=== PATIENT | male | born 1950 | race Caucasian/White ===

== ENCOUNTER 2017-04-15 13:41 | Emergency (ER) | payer OTHER ==
[2017-04-15] MEDS ORDERED: SODIUM CHLORIDE FLUSH 0.9% 10 ML SYRINGE IVP ONE (13:54)
[2017-04-15 14:24] LABS: ALBUMIN/GLOBULIN RATIO 1.5 (1.0-2.2); BILIRUBIN,TOTAL 0.7 mg/dL (0.2-1.0); CALCIUM 9.6 mg/dL (8.5-10.3); CREATININE 1.2 mg/dL (0.6-1.2); TOTAL PROTEIN 7.3 g/dL (6.7-8.2)
[2017-04-15 14:27] LABS: BASOPHILS % (AUTO) 0.5 %; EOSINOPHILS % (AUTO) 0.4 %; HCT - HEMATOCRIT 41.7 % (42.0-52.0); HGB - HEMOGLOBIN 14.3 g/dL (14.0-18.0); LYMPHOCYTES # (AUTO) 0.8 10^3/uL (1.5-3.5); MEAN CORPUSCULAR HEMOGLOBIN 30.7 pg (27.0-31.0); MEAN CORPUSCULAR HGB CONC 34.2 g/dL (32.0-36.0); MEAN CORPUSCULAR VOLUME 89.6 fL (80.0-94.0); MEAN PLATELET VOLUME 10.9 fL (7.4-11.4); MONOCYTES # (AUTO) 0.2 10^3/uL (0.0-1.0); MONOCYTES % (AUTO) 2.7 %; NEUTROPHILS # (AUTO) 6.5 10^3/uL (1.5-6.6); NEUTROPHILS % (AUTO) 85.4 %; NUCLEATED RED BLOOD CELLS AUTO 0.1 /100WBC; RED BLOOD COUNT 4.65 10^6/uL (4.70-6.10); RED CELL DISTRIBUTION WIDTH 12.9 % (12.0-15.0); UNCORRECTED WHITE BLOOD COUNT 7.6 x10^3/uL; WHITE BLOOD COUNT 7.6 x10^3/uL (4.8-10.8)
--- NOTE | 2017-04-15 14:29 | ED Physician Documentation ---
PD HPI CHEST PAIN - Stated complaint Stated Complaint: CHEST PAIN - Chief complaint Chief Complaint: Cardiac - History obtained from History obtained from: Patient, Family - History of Present Illness Timing - onset: Enter time (), Today Timing - onset during: Exertion Timing - duration: Hours Timing - details: Abrupt onset, Still present Pain level max: 8 Pain level now: 7 Quality: Pressure, Aching Location: Left chest Radiation: Left upper extremity Improved by: Rest. No: Antacids Worsened by: Exertion Associated symptoms: Shortness of air, Diaphoresis Similar symptoms before: No diagnosis Recently seen: Not recently seen - Additional information Additional information: 66-year-old male ran up his stairs today and back down the stairs and then back up the stairs again and developed his typical chest pain that he gets with exertion over this past year. He usually is able to have this pain resolved with rest. Today this did not resolve and he continues to have pain in his left chest with some radiation down his left arm. The radiation down the left arm is resolved since coming to the emergency department. The patient has a exercise treadmill test scheduled in 2 days time.The patient is a history of chest pain since August of this year that is related to exertion and resolves with rest. He has had this repeatedly and consistently. Today he expected his pain resolved and it did not. He has eventually come to the emergency department. He is not currently short of breath or diaphoretic and the radiation to his arm has stopped. Review of Systems Constitutional: denies: Fever, Chills, Myalgias, Fatigue Eyes: denies: Decreased vision Ears: denies: Ear pain Nose: denies: Congestion Throat: denies: Sore throat Cardiac: reports: Chest pain / pressure. denies: Palpitations, Pedal edema, Calf pain Respiratory: reports: Dyspnea. denies: Cough, Wheezing GI: denies: Abdominal Pain, Nausea, Vomiting : denies: Dysuria, Frequency Skin: denies: Rash Musculoskeletal: denies: Neck pain, Back pain, Extremity pain PD PAST MEDICAL HISTORY - Past Medical History Cardiovascular: Other Respiratory: None Endocrine/Autoimmune: None GI: None : None Psych: None Musculoskeletal: None Derm: None Other Past Medical History: Bradycardia - Past Surgical History Ortho: Other - Allergies Allergies/Adverse Reactions: Allergies Allergy/AdvReac Type Severity Reaction Status Date / Time No Known Drug Allergies Allergy Verified 04/15/17 13:46 - Social History Does the pt smoke?: No Smoking Status: Never smoker Does the pt drink ETOH?: No PD ED PE NORMAL - Vitals Vital signs reviewed: Yes (hypertensive mild ) - General General: Alert and oriented X 3, No acute distress, Well developed/nourished - HEENT HEENT: Atraumatic, PERRL, EOMI - Neck Neck: Supple, no meningeal sign, No bony TTP - Cardiac Cardiac: RRR, No murmur - Respiratory Respiratory: No respiratory distress, Clear bilaterally - Abdomen Abdomen: Soft, Non tender - Back Back: No CVA TTP, No spinal TTP - Derm Derm: Normal color, Warm and dry, No rash - Extremities Extremities: No deformity, No edema - Neuro Neuro: No motor deficit, No sensory deficit, Normal speech - Psych Psych: Normal mood, Normal affect Results - Vitals Vitals: Vital Signs - 24 hr 04/15/17 04/15/17 13:43 14:35 Temperature 36.4 C L Heart Rate 50 L 51 L Respiratory 16 16 Rate Blood Pressure 136/86 H 144/73 H O2 Saturation 100 99 Oxygen O2 Source Room air - EKG (time done) 1357 Rate: Rate (enter#) (43) Rhythm: Sinus bradycardia Ischemia: Q waves (both anterior and inferior ) Compare to prior EKG: Old EKG unavailable Computer interpretation: Disagree with computer (I believe there is ST elevation in V2 and V3) - Labs Labs: Laboratory Tests 04/15/17 04/15/17 04/15/17 14:02 14:02 14:02 WBC 7.6 RBC 4.65 L Hgb 14.3 Hct 41.7 L MCV 89.6 MCH 30.7 MCHC 34.2 RDW 12.9 Plt Count 156 MPV 10.9 Neut # 6.5 Lymph # 0.8 L [place] # 0.2 Eos # 0.0 Baso # 0.0 Absolute Nucleated RBC 0.00 Nucleated RBC % 0.1 Sodium 136 Potassium 4.0 Chloride 101 Carbon Dioxide 27 Anion Gap 8.0 BUN 14 Creatinine 1.2 Estimated GFR (MDRD) 61 L Glucose 130 H Calcium 9.6 Total Bilirubin 0.7 AST 40 ALT 36 Alkaline Phosphatase 83 Troponin I 1.09 H* Total Protein 7.3 Albumin 4.4 Globulin 2.9 Albumin/Globulin Ratio 1.5 Lipase 33 - Rads (name of study) 2 view chest Radiology: Prelim report reviewed (Impression: No acute cardiopulmonary abnormality.), EMP read indepedently, See rad report PD MEDICAL DECISION MAKING - ED course Complexity details: reviewed results, re-evaluated patient, considered differential, d/w patient, d/w family ED course: 66-year-old male with no prior cardiac history and no significant medical history has developed stable angina in August of this year today he has pain that is not relieved with rest and subtle ST elevation in 2 leads on his electrocardiogram as well as Q waves. He has an elevated troponin at 1.09. [facility] We have contacted the emergency department at [facility] in [place] and we are sending him down to [facility] code STEMI. Here in the emergency department he is given aspirin nitroglycerin and started on a heparin drip. He does not appear ill on initial evaluation. Departure - Departure Disposition: 02 Transfer Acute Care Hosp Clinical Impression: STEMI (ST elevation myocardial infarction) Qualifiers: Involved coronary artery: unspecified coronary artery Qualified Code(s): I21.3 - ST elevation (STEMI) myocardial infarction of unspecified site Condition: Serious
[2017-04-15] MEDS ORDERED: NITROGLYCERIN SL 0.4 MG TABLET SL ONE (14:35)
[2017-04-15 14:36] VITALS: BP 144/73
[2017-04-15] MEDS ORDERED: ASPIRIN CHEW 81 MG TABLET ONE (14:36)
--- NOTE | 2017-04-15 14:43 | XRAY Preliminary Report ---
Exam: XR Chest 2 View PA/LAT IMPRESSION: No acute cardiopulmonary abnormality. [facility] SITE ID: [id number]
[2017-04-15] MEDS ORDERED: ASPIRIN CHEW 81 MG TABLET PO STA ×2 (14:44)
[2017-04-15] MEDS ORDERED: NITROGLYCERIN SL 0.4 MG TABLET SL STA (14:45)
--- NOTE | 2017-04-15 14:45 | XRAY Report ---
EXAM: CHEST RADIOGRAPHY EXAM DATE: 04/15/2017 02:28 PM. CLINICAL HISTORY: Chest Pain. COMPARISON: 07/31/2012. TECHNIQUE: 2 views. FINDINGS: Lungs/Pleura: No focal opacities evident. No pleural effusion. No pneumothorax. Normal volumes. Mediastinum: Heart and mediastinal contours are unremarkable. Other: None. IMPRESSION: No acute cardiopulmonary abnormality. [facility] Referring Provider Line: [phone] SITE ID: [id number]
[2017-04-15] MEDS ORDERED: HEPARIN 25000UNITS/500ML (D5W) 25,000 UNIT/500 ML BAG IV ONE (14:50)
[2017-04-15] MEDS ORDERED: HEPARIN 5,000 UNIT/ML VIAL ONE (14:50)
[2017-04-15] MEDS ORDERED: ONDANSETRON 4 MG/2 ML VIAL IVP STA (14:53)
[2017-04-15] MEDS ORDERED: ONDANSETRON 4 MG/2 ML VIAL ONE (14:57)
[2017-04-15] MEDS ORDERED: HEPARIN 5,000 UNIT/ML VIAL IVP STA (15:01)
[2017-04-15] MEDS ORDERED: HEPARIN 25000UNITS/500ML (D5W) 25,000 UNIT/500 ML BAG IV STA (15:02)
== END 2017-04-15 16:11 | disposition short-term general hospital (02) ==
LOC: ED 13:41
DX: I21.3 ST elevation (STEMI) myocardial infarction of unspecified site (principal); R00.1 Bradycardia, unspecified
CPT/HCPCS: 36415; 71020; 80053; 83690; 84484; 85025; 93005; 96365; 96375; 96376; 99284; 99285; A9270

== ENCOUNTER 2017-04-15 14:59 | Outpatient (CLI) | payer OTHER | END 2017-04-15 15:00 | disposition short-term general hospital (02) | LOC: EMS 14:59 | PROVIDERS: ATTEND Surgery | DX: R07.9 Chest pain, unspecified (principal); R11.0 Nausea; R53.83 Other fatigue | CPT/HCPCS: A0170; A0425; A0427 ==